=== PATIENT | female | born 1990 | race Asian ===

== ENCOUNTER → 2023-08-02 10:40 | Outpatient (REF) | payer OTHER, SELFPAY ==
[2023-08-02 13:50] LABS: Hepatitis B Surface Antibody Positive
[2023-08-02 19:06] LABS: Rubella Positive
[2023-08-04 13:37] LABS: Quantiferon Mitogen minus NIL 9.29 IU/mL; Quantiferon NIL 0.04 IU/mL; Quantiferon Plus TB1 minus NIL 0.01 IU/mL (0.00-0.34); Quantiferon TB Gold Plus Negative (Negative)
[2023-08-05 17:02] LABS: Mumps Virus IgG Equivocal; Rubeola (Measles) IgG Positive
[2023-08-05 18:42] LABS: Varicella Zoster IgG (VZV) Positive
== END ==
LOC: OHS 10:40
PROVIDERS: ATTENDING PHYSICIAN Nurse Practitioner Family
DX: Z23 Encounter for immunization (principal)
CPT/HCPCS: 36415; 86480; 86706; 86735; 86762; 86765; 86787

== ENCOUNTER → 2023-11-01 16:53 | Outpatient (REF) | payer OTHER, SELFPAY ==
[2023-11-01 17:52] LABS: HCG, Serum Qualitative Screen Negative
== END ==
LOC: CLAB 16:53
PROVIDERS: ATTENDING PHYSICIAN Family Medicine
DX: R11.0 Nausea (principal)
CPT/HCPCS: 36415; 84703

== ENCOUNTER → 2024-02-07 11:10 | Outpatient (REF) | payer BC, SELFPAY ==
[2024-02-08 12:36] LABS: Blood Urea Nitrogen 17 mg/dl (7-17); Glucose 97 mg/dl (70-99); eGFR > 60.00
[2024-02-08 12:37] LABS: ALT (SGPT) 13 U/L (0-35); AST (SGOT) 20 U/L (14-36); Albumin 4.7 g/dl (3.5-5.0); Alkaline Phosphatase 70 U/L (38-126); Calcium 9.8 mg/dl (8.4-10.2); Carbon Dioxide 27 mmol/L (22-30); Chloride 102 mmol/L (98-107); Potassium 4.1 mmol/L (3.5-5.1); Sodium 140 mmol/L (135-145); Total Bilirubin 0.4 mg/dl (0.2-1.3); Total Protein 7.2 g/dl (6.3-8.2)
[2024-02-08 12:38] LABS: Ferritin 34.6 ng/ml (6.24-137); HDL Cholesterol 52 mg/dl; LDL Cholesterol, Calculated 106 mg/dl; TSH 3.24 uIU/ml (0.47-4.68); Total Cholesterol 183 mg/dl (50-199); Total Iron Binding Capacity 299 ug/dl (265-497); Triglyceride 125 mg/dl (10-149); Very Low Density Lipoprotein 25 mg/dl (0-30)
[2024-02-08 12:40] LABS: Hematocrit 46.3 % (37.0-47.0); Mean Corp Hgb Conc. 32.4 g/dL (33.0-37.0); Mean Corpuscular Hgb 29.9 pg (27.0-31.0); Mean Corpuscular Volume 92.4 fL (81.0-99.0); Red Blood Cell Count 5.01 10^6/uL (4.20-5.40); Red Cell Dist. Width 13.4 % (11.5-14.5); White Blood Cell Count 5.7 10^3/uL (4.8-10.8)
[2024-02-08 12:41] LABS: % Basophils 0.9 % (0-2); % Eosinophils 1.9 % (0-6); % Immature Granulocytes 0.2 % (0-0.5); % Lymphocytes 37.2 % (20.5-51.1); % Monocytes 11.1 % (1.7-9.3); % Neutrophils 48.7 % (42.2-75.2); Absolute Basophils 0.1 10^3/uL (0-0.2); Absolute Eosinophils 0.1 10^3/uL (0-0.7); Absolute Lymphocytes 2.1 10^3/uL (1.2-3.4); Absolute Monocytes 0.6 10^3/uL (0.1-0.6); Absolute Neutrophils 2.8 10^3/uL (1.4-6.5); Mean Platelet Volume 10.4 fL (7.4-10.4); Platelet Count 238 10^3/uL (130-400)
[2024-02-08 12:42] LABS: Nucleated Red Blood Cells % 0 %
== END ==
LOC: CLAB 11:10
PROVIDERS: ATTENDING PHYSICIAN Family Medicine
DX: Z00.00 Encounter for general adult medical examination without abnormal findings (principal); E61.1 Iron deficiency
CPT/HCPCS: 80053; 80061; 82306; 82728; 83550; 84443; 85025

== ENCOUNTER → 2024-04-02 14:22 | Outpatient (REF) | payer BC, SELFPAY ==
[2024-04-10 09:53] LABS: HPV, High Risk Not Detected; HPV, High Risk Source Cervical
== END ==
LOC: CPAP 14:22
PROVIDERS: ATTENDING PHYSICIAN Nurse Practitioner Family
DX: Z01.419 Encounter for gynecological examination (general) (routine) without abnormal findings (principal); Z11.51 Encounter for screening for human papillomavirus (HPV); Z11.3 Encounter for screening for infections with a predominantly sexual mode of transmission
CPT/HCPCS: 87491; 87591; 87624; G0123

== ENCOUNTER → 2024-04-02 14:31 | Outpatient (REF) | payer BC, SELFPAY ==
[2024-04-02 15:53] LABS: Urine Albumin Negative (Neg - Trace); Urine Bilirubin Negative (Negative); Urine Character Clear (Clear); Urine Color Yellow; Urine Glucose Negative (Negative); Urine Ketone Negative (Negative); Urine Leukocyte 1+ (Negative); Urine Nitrite Negative (Negative); Urine Occult Blood Negative (Negative); Urine Specific Gravity 1.025 (<1.030); Urine Urobilinogen Negative (Neg - 1+)
[2024-04-02 16:00] LABS: % Basophils 0.3 % (0-2); % Eosinophils 1.1 % (0-6); % Immature Granulocytes 0.4 % (0-0.5); % Lymphocytes 24.1 % (20.5-51.1); % Monocytes 6.4 % (1.7-9.3); % Neutrophils 67.7 % (42.2-75.2); Absolute Eosinophils 0.1 10^3/uL (0-0.7); Absolute Lymphocytes 2.5 10^3/uL (1.2-3.4); Absolute Monocytes 0.7 10^3/uL (0.1-0.6); Absolute Neutrophils 6.9 10^3/uL (1.4-6.5); Hematocrit 39.6 % (37.0-47.0); Hemoglobin 13.6 g/dL (12.0-16.0); Mean Corp Hgb Conc. 34.3 g/dL (33.0-37.0); Mean Corpuscular Hgb 28.8 pg (27.0-31.0); Mean Corpuscular Volume 83.9 fL (81.0-99.0); Mean Platelet Volume 9.9 fL (7.4-10.4); Nucleated Red Blood Cells % 0 %; Platelet Count 297 10^3/uL (130-400); Red Blood Cell Count 4.72 10^6/uL (4.20-5.40); Red Cell Dist. Width 13.3 % (11.5-14.5); White Blood Cell Count 10.2 10^3/uL (4.8-10.8)
[2024-04-02 16:15] LABS: Urine Bacteria Moderate (Negative); Urine Red Blood Cell 0-2 /HPF (0-2); Urine Squamous Cell 26-30 /LPF (Few)
[2024-04-02 18:04] LABS: Rubella Positive
[2024-04-02 19:53] LABS: Hepatitis B Surface Antigen Negative (Negative)
[2024-04-02 20:11] LABS: Hepatitis C Antibody Negative (Negative)
[2024-04-03 10:06] LABS: Glycohemoglobin (HgbA1c) 5.3 % (4.0-5.6)
[2024-04-03 16:27] LABS: Syphilis/T. pallidum Ab Reflex Negative (Negative)
[2024-04-03 17:05] LABS: HIV Combo Negative (Negative)
== END ==
LOC: REG 14:31
PROVIDERS: ATTENDING PHYSICIAN Nurse Practitioner Family; FAMILY PHYSICIAN Family Medicine
DX: Z32.01 Encounter for pregnancy test, result positive (principal)
CPT/HCPCS: 36415; 80055; 81003; 81015; 83036; 86803; 86850; 86900; 86901; 87086; 87389

== ENCOUNTER → 2024-04-30 09:18 | Outpatient (REF) | payer BC, SELFPAY | LOC: PNTC 09:18 | PROVIDERS: ATTENDING PHYSICIAN Student in an Organized Health Care Education/Training Program | DX: O09.522 Supervision of elderly multigravida, second trimester (principal) | CPT/HCPCS: 36415; 81420 ==

== ENCOUNTER → 2024-05-12 16:07 | Outpatient (REF) | payer BC, SELFPAY | LOC: RAD 16:07 | PROVIDERS: ATTENDING PHYSICIAN Obstetrics & Gynecology; FAMILY PHYSICIAN Family Medicine | DX: O26.859 Spotting complicating pregnancy, unspecified trimester (principal) | CPT/HCPCS: 76801 ==

== ENCOUNTER → 2024-06-11 15:25 | Outpatient (REF) | payer BC, SELFPAY ==
[2024-06-13 20:18] LABS: AFP Multiple of Median (MoM) 0.78; Dating Ultrasound; Insulin Req Maternal Diabetes No; Maternal Age at Delivery 35.6 yr; Maternal Race Nonblack; Maternal Screen Interpretation Screen Neg; Maternal Weight 147.0 lbs.; Number of Fetuses Singleton; Patient's AFP Concentration 37 ng/mL; Smoking No
== END ==
LOC: PNTC 15:25
PROVIDERS: ATTENDING PHYSICIAN Student in an Organized Health Care Education/Training Program
DX: Z34.92 Encounter for supervision of normal pregnancy, unspecified, second trimester (principal)
CPT/HCPCS: 36415; 82105

== ENCOUNTER 2024-07-17 14:46 | Observation (INO) | payer BC, SELFPAY ==
[2024-07-17 15:25] VITALS: BP 111/72; BMI 25.6
[2024-07-17 15:53] LABS: Hematocrit 36.5 % (37.0-47.0); Hemoglobin 12.5 g/dL (12.0-16.0); Mean Corp Hgb Conc. 34.2 g/dL (33.0-37.0); Mean Corpuscular Hgb 30.2 pg (27.0-31.0); Mean Corpuscular Volume 88.2 fL (81.0-99.0); Mean Platelet Volume 9.8 fL (7.4-10.4); Platelet Count 276 10^3/uL (130-400); Red Blood Cell Count 4.14 10^6/uL (4.20-5.40); Red Cell Dist. Width 14.3 % (11.5-14.5); White Blood Cell Count 11.6 10^3/uL (4.8-10.8)
== END 2024-07-17 18:08 | disposition home or self-care (01) ==
LOC: LDRP 14:46
PROVIDERS: ADMITTING PHYSICIAN Obstetrics & Gynecology
DX: O26.892 Other specified pregnancy related conditions, second trimester (principal); Z3A.23 23 weeks gestation of pregnancy; R10.9 Unspecified abdominal pain; M25.551 Pain in right hip; W00.0XXA Fall on same level due to ice and snow, initial encounter; Y93.01 Activity, walking, marching and hiking; Y92.9 Unspecified place or not applicable
CPT/HCPCS: 76815; 76817; 85027; 85460; 86850; 86900; 86901

== ENCOUNTER → 2024-08-13 06:37 | Outpatient (REF) | payer BC, SELFPAY ==
[2024-08-13 09:36] LABS: % Basophils 0.2 % (0-2); % Eosinophils 0.5 % (0-6); % Lymphocytes 15.7 % (20.5-51.1); % Monocytes 4.8 % (1.7-9.3); % Neutrophils 77.8 % (42.2-75.2); Absolute Eosinophils 0.1 10^3/uL (0-0.7); Absolute Immature Granulocytes 0.1 10^3/uL (0-0.05); Absolute Lymphocytes 1.6 10^3/uL (1.2-3.4); Absolute Monocytes 0.5 10^3/uL (0.1-0.6); Absolute Neutrophils 7.7 10^3/uL (1.4-6.5); Hematocrit 42.6 % (37.0-47.0); Hemoglobin 13.8 g/dL (12.0-16.0); Mean Corp Hgb Conc. 32.4 g/dL (33.0-37.0); Mean Corpuscular Hgb 30.5 pg (27.0-31.0); Mean Corpuscular Volume 94.2 fL (81.0-99.0); Mean Platelet Volume 10.6 fL (7.4-10.4); Nucleated Red Blood Cells % 0 %; Platelet Count 213 10^3/uL (130-400); Red Blood Cell Count 4.52 10^6/uL (4.20-5.40); Red Cell Dist. Width 15.2 % (11.5-14.5); White Blood Cell Count 9.9 10^3/uL (4.8-10.8)
[2024-08-13 09:55] LABS: 1 Hour after 50gm 119 mg/dl
[2024-08-14 12:55] LABS: Syphilis/T. pallidum Ab Reflex Negative (Negative)
== END ==
LOC: REG 06:37
PROVIDERS: ATTENDING PHYSICIAN Obstetrics & Gynecology; FAMILY PHYSICIAN Family Medicine
DX: Z34.93 Encounter for supervision of normal pregnancy, unspecified, third trimester (principal)
CPT/HCPCS: 36415; 82950; 85025; 86780

== ENCOUNTER → 2024-10-15 11:14 | Outpatient (REF) | payer BC, SELFPAY | LOC: CLAB 11:14 | PROVIDERS: ATTENDING PHYSICIAN Obstetrics & Gynecology | DX: Z36.85 Encounter for antenatal screening for Streptococcus B (principal); O09.523 Supervision of elderly multigravida, third trimester | CPT/HCPCS: 87070 ==

== ENCOUNTER → 2024-10-22 10:57 | Outpatient (REF) | payer BC, SELFPAY | LOC: PNTC 10:57 | PROVIDERS: ATTENDING PHYSICIAN Student in an Organized Health Care Education/Training Program | DX: O36.8390 Maternal care for abnormalities of the fetal heart rate or rhythm, unspecified trimester, not applicable or unspecified (principal); O09.529 Supervision of elderly multigravida, unspecified trimester | CPT/HCPCS: 59025; 76818 ==

== ENCOUNTER 2024-11-02 10:54 | Inpatient (IN) | payer BC, SELFPAY ==
[2024-11-02 10:59] VITALS: BP 124/77; BMI 30.3
[2024-11-02] MEDS: LR 1000 IV ×2 (12:00→13:44)
[2024-11-02 12:28] LABS: % Basophils 0.2 % (0-2); % Eosinophils 0.6 % (0-6); % Immature Granulocytes 0.3 % (0-0.5); % Lymphocytes 15.3 % (20.5-51.1); % Monocytes 7.4 % (1.7-9.3); % Neutrophils 76.2 % (42.2-75.2); Absolute Eosinophils 0.1 10^3/uL (0-0.7); Absolute Lymphocytes 1.6 10^3/uL (1.2-3.4); Absolute Monocytes 0.8 10^3/uL (0.1-0.6); Absolute Neutrophils 7.8 10^3/uL (1.4-6.5); Hematocrit 40.1 % (37.0-47.0); Hemoglobin 13.7 g/dL (12.0-16.0); Mean Corp Hgb Conc. 34.2 g/dL (33.0-37.0); Mean Corpuscular Hgb 30.4 pg (27.0-31.0); Mean Corpuscular Volume 88.9 fL (81.0-99.0); Mean Platelet Volume 11.4 fL (7.4-10.4); Nucleated Red Blood Cells % 0 %; Platelet Count 224 10^3/uL (130-400); Red Blood Cell Count 4.51 10^6/uL (4.20-5.40); Red Cell Dist. Width 14.1 % (11.5-14.5); White Blood Cell Count 10.2 10^3/uL (4.8-10.8)
[2024-11-02] MEDS: SUBLIMAZE 100 MCG EPIDURAL (13:21)
[2024-11-02] MEDS: FENTANYL/BUPIVACAINE 100 EPIDURAL (13:21)
[2024-11-02] MEDS: PITOCIN 30 UNITS/NSS 500 ML IV (16:12)
[2024-11-03 04:51] LABS: Hematocrit 39.5 % (37.0-47.0); Hemoglobin 13.2 g/dL (12.0-16.0)
[2024-11-03] MEDS: PRENATAL PLUS 1 TABLET PO (07:39)
[2024-11-03] MEDS: MOTRIN 600 MG PO ×2 (07:39→21:19)
[2024-11-03] MEDS: SENOKOT-S 1 TABLET PO (07:39)
[2024-11-03] MEDS: TYLENOL 650 MG PO (13:04)
[2024-11-03 13:34] LABS: Syphilis/T. pallidum Ab Reflex Negative (Negative)
[2024-11-04] MEDS: PRENATAL PLUS 1 TABLET PO (07:43)
[2024-11-04] MEDS: SENOKOT-S 1 TABLET PO (07:48)
[2024-11-04] MEDS: MOTRIN 600 MG PO (07:48)
== END 2024-11-04 11:00 | disposition home or self-care (01) | DRG 807 ==
LOC: LDRP 10:54
PROVIDERS: ADMITTING PHYSICIAN Obstetrics & Gynecology; FAMILY PHYSICIAN Obstetrics & Gynecology
PROC: 10907ZC Drainage of Amniotic Fluid, Therapeutic from Products of Conception, Via Natural or Artificial Opening (ICD-10-PCS; 2024-11-02)
PROC: 10E0XZZ Delivery of Products of Conception, External Approach (ICD-10-PCS; 2024-11-02)
PROC: 0HQ9XZZ Repair Perineum Skin, External Approach (ICD-10-PCS; 2024-11-02)
DX: O70.0 First degree perineal laceration during delivery (principal); Z37.0 Single live birth; Z3A.38 38 weeks gestation of pregnancy
CPT/HCPCS: 85014; 85018; 85025; 86780; 86850; 86900; 86901

== ENCOUNTER 2025-03-24 20:39 | Observation (INO) | payer BC, SELFPAY ==
[2025-03-24 16:07] VITALS: BP 135/86
--- NOTE | 2025-03-24 16:11 | ED.GENMED ---
History of Present Illness
General
Chief Complaint: Dizziness
Source: patient
Exam Limitations: none
Time Seen by Provider: 03/24/25 16:06
History of Present Illness
History of Present Illness:
See MDM
Past History
Past History
ED Past Medical History: None
ED Past Surgical History: None
Social History
Tobacco: Non-smoker
Alcohol: None
Phy Exam
Physical Exam
Physical Exam:
See MDM
Scores
NIH Stroke Score
Level of Consciousness: 0 - Alert
LOC Questions: 0-Answers both correctly
LOC Commands: 0-Performs both correctly
Best Horizontal Gaze: 0-Normal
Visual Torres: 0=Normal, no visual loss
Facial Palsy: 0=Normal, symmetrical
Motor - Right Arm: 0=No drift 10 seconds
Motor - Left Arm: 0=No drift 10 seconds
Motor - Right Le-No drift 5 seconds
Motor - Left Le-No drift 5 seconds
Limb Ataxia: 0-Absent
Sensation: 0-Normal
Best Language: 0-No aphasia
Dysarthria: 0-Normal
Extinction and Inattention: 0-No abnormality
NIH Total Score:: 0
Course
Orders/Labs/Results
Orders:
Orders
03/24/25 16:08
0.9% Sodium Chloride 1000 ml [Nss] 1,000 ml IV BOLUS
03/24/25 16:09
Electrocardiogram (*1) Urgent
Reason for Study: Fatigue / Weakness
EKG- Treatment ONCE
03/24/25 16:15
CT Head Angio W/wo Iv Contrast Urgent
Comment: delayed imaging for CT venogram
Reason For Exam: ataxia
03/24/25 16:22
Complete Blood Count/With Diff Urgent
Comprehensive Metabolic Panel Urgent
HCG, Serum Qualitative Screen Urgent
Comment: ADD ON
03/24/25 17:26
Add On- LAB STAT!
Tests Added?: serum preg
03/24/25 19:17
Consult Neurology [NEUROLOGY CONSULT] Routine
Consulting Provider: Adriel Gavin
Was physician already notified: Yes
Aspirin Chewable [Low Strength Aspirin] 324 mg PO NOW STA
Clopidogrel Bisulfate [Plavix] 300 mg PO NOW STA
Abnormal Lab Results
03/24/25
16:22
Absolute Neuts (auto) 8.1 H 10^3/uL
(1.4-6.5)
Absolute Monos (auto) 0.7 H 10^3/uL
(0.1-0.6)
Neutrophils % 79.8 H %
(42.2-75.2)
Lymphocytes % 12.4 L %
(20.5-51.1)
Glucose 125 H mg/dl
(70-99)
03/24/25 16:22
03/24/25 16:22
Vital Signs
Initial and Last Documented VS:
Initial Vital Signs
BP
135/86
03/24/25 16:07
Last Documented Vital Signs
Pulse Resp BP Pulse Ox
81 12 112/84 100
03/24/25 18:00 03/24/25 16:15 03/24/25 18:00 03/24/25 18:00
MDM/Problems Addressed
Differential Diagnosis Includes:
Note:
CHIEF COMPLAINT(S)
Unsteady gait and dizziness.
HISTORY OF PRESENT ILLNESS
The patient is a 35-year-old female who presented with concerns of unsteady gait. Approximately 30 minutes prior to arrival at the medical facility, while at work, she experienced sudden dizziness accompanying a tendency to stumble to the right. She
reported feeling 'off,' although she perceives some improvement since the onset. She denies having any headache, numbness, tingling, or visual disturbances. The patient experienced mild nausea but declined anti-nausea medication. She had her first
menstrual cycle approximately one week ago following childbirth four months prior, and she stated it appeared normal.
PAST MEDICAL AND SURIGICAL HISTORY
The patient denies any past medical or surgical history.
PHYSICAL EXAM
General: Alert, no acute distress.
Skin: Warm, dry.
Head: Normocephalic, atraumatic
Neck: Appears supple, trachea midline.
Eyes, Ears, Nose, Mouth, and Throat: Oral mucosa moist. Pupils equal reactive. EOMI
Cardiovascular: No signs of cyanosis. No murmur noted
Respiratory: Respirations are non-labored.
Abdomen: Non-distended
Musculoskeletal: No deformities
Neurological: No focal neurological deficit observed. Normal finger-nose bilaterally
Psychiatric: Cooperative, appropriate mood and affect.
PROBLEM LIST
Acute:
- Unsteady gait
- Dizziness
- Mild nausea
PLAN
- Obtain CT scan of the head to evaluate ataxia.
- Conduct basic blood work.
- Perform ECG.
- Administer intravenous fluids.
- If the patient remains symptomatic after a negative workup, consult with neurology.
DIFFERENTIAL DIAGNOSIS
The Differential Diagnosis includes, in no particular order and is not limited to:
- Benign Paroxysmal Positional Vertigo (BPPV)
- Vestibular Neuritis
- Transient Ischemic Attack (TIA)
- Cerebellar Stroke
- Labyrinthitis
- M�ni�res Disease
- Orthostatic Hypotension
- Dehydration
- Inner Ear Infection
- Acute Vestibular Migraine
My independent EKG interpretation is:
- Rhythm: Regular
- Heart Rate: 97 beats per minute
- [place]: Normal
- ST Segment Changes: None
03/24/25 - 16:20
On reassessment, the patient exhibits right-sided ataxia when closing her eyes. Neurology recommends a CT angiogram of the head, followed by delayed imaging to obtain a CT venogram due to her recent state. Radiology has approved the order for these
imaging studies.
SUMMARY OF ENCOUNTER
The patient, a 35-year-old female, presented to the emergency department with symptoms of unsteady gait and dizziness. A CT angiogram and CT venogram were ordered to evaluate her symptoms due to concern for possible neurological issues. These
imaging studies returned negative. Despite this, the patient remained symptomatic. Neurology was consulted and advised that empirical treatment with aspirin and clopidogrel (Plavix) be initiated while awaiting admission for an MRI. Additionally,
potential alternative diagnoses such as multiple sclerosis and viral syndrome were discussed with the patient. An incidental finding of a Chiari malformation on the CT was also addressed with her.
DISPOSITION
Admit to the hospitalist.
ASSESSMENT
The patient presents with dizziness and unsteady gait, with a negative CT angiogram and venogram, but remains symptomatic. Empirical treatment with aspirin and clopidogrel was initiated, and hospital admission for further evaluation, including MRI,
is planned.
MANAGEMENT OF THE PATIENTS CARE WAS DISCUSSED WITH
Discussions regarding the patients management were held with the neurology team to determine the appropriate course of action, resulting in the plan for hospital admission and further imaging studies.
PLAN
Admit the patient to the hospital for further evaluation, including MRI. Start aspirin and clopidogrel empirically. Monitor for changes in symptoms and reassess regularly. Continue to explore other potential diagnoses such as multiple sclerosis or
viral syndrome.
INDEPENDENT REVIEW OF LABS AND INTERPRETATION OF TESTS
My independent interpretation of the CT angiogram and CT venogram is negative. However, a Chiari malformation was incidentally noted.
PATIENT EDUCATION AND COUNSELING
The patient was informed about the incidental finding of Chiari malformation and potential alternative diagnoses such as multiple sclerosis versus a viral syndrome. Treatment options and the plan for hospital admission were thoroughly discussed.
MEDICATION RECONCILIATION
Initiated treatment with aspirin and clopidogrel (Plavix) as per neurologys recommendation.
MEDICAL DECISION MAKING
-Complexity of Data Reviewed: DDx includes Benign Paroxysmal Positional Vertigo (BPPV), Vestibular Neuritis, Transient Ischemic Attack (TIA), Cerebellar Stroke, Labyrinthitis, M�ni�res Disease, Orthostatic Hypotension, Dehydration, Inner Ear
Infection, Acute Vestibular Migraine.
-Data:
Category 1: My independent interpretation of CT angiogram and CT venogram returned negative results. Incidental finding of Chiari malformation.
Category 3: Consultation with neurology for management plan and decision to admit for an MRI.
DIAGNOSIS
Unsteady gait and dizziness, unspecified, likely multifactorial. Potential alternative diagnoses include multiple sclerosis, Chiari malformation, or viral syndrome. Await MRI for further evaluation.
*Pulse Oximetry
Patient hypoxic: no
*Critical Care Note
Total Time (30-74mins, 75-104mins- exclusive of procedures): Not Applicable
ED Attending Note
-
Portions of this chart may have been created with voice recognition software.� Occasional wrong word or��sound alike� substitutions may have occurred due to the inherent limitations of voice recognition software.
Discharge Plan
Departure
Patient Disposition: Admit
Date of Disposition: 03/24/25
Time of Disposition: 19:24
Admit to: Med/Surg
Presentation/result/management discussed w/ accepting MD/DO: Hospitalist
Discharge Problem:
Ataxia
Prescriptions:
No Action
vit-iron fum-folic ac [ Tablet] 28 mg iron- 800 mcg Tablet
1 tab PO DAILY
cholecalciferol (vitamin D3) 100 mcg (4,000 unit) Capsule
1,000 unit PO DAILY
acetaminophen 325 mg Tablet
650 mg PO Q4HPRN PRN (Reason: mild pain) Qty: 0 0RF
sennosides-docusate sodium 8.6-50 mg Tablet
1 tab PO DAILYPRN PRN (Reason: constipation) Qty: 0 0RF
ibuprofen 600 mg Tablet
600 mg PO Q6HPRN PRN (Reason: moderate pain/cramps) Qty: 45 0RF
Referrals:
Eduar Newton DO [Family Provider, Family Practice]
Interventions
Interventions:
*Risk Screen - Suicide Last Done: 03/24/25 16:30
*General Assessment Last Done: 03/24/25 16:30
*Neglect/Abuse Screening Last Done: 03/24/25 16:30
*ED- Fall Risk Assessment Last Done: 03/24/25 16:30
ED- Neurological Assessment Last Done: 03/24/25 16:30
ED- Cardiac Assessment Last Done: 03/24/25 16:30
ED Swallowing Screen Last Done: 03/24/25 16:30
Discharge Date and Time
Print Language: UPPER SORBIAN
[2025-03-24 16:36] VITALS: BMI 25.4
[2025-03-24 16:43] LABS: Hematocrit 42.4 % (37.0-47.0); Hemoglobin 14.4 g/dL (12.0-16.0); Mean Corp Hgb Conc. 34.0 g/dL (33.0-37.0); Mean Corpuscular Volume 87.8 fL (81.0-99.0); Nucleated Red Blood Cells % 0 %; Platelet Count 243 10^3/uL (130-400); Red Cell Dist. Width 13.1 % (11.5-14.5)
[2025-03-24] MEDS: NSS 1000 IV (16:50)
[2025-03-24 16:53] VITALS: BP 111/84
[2025-03-24 17:00] VITALS: BP 114/76
[2025-03-24 17:09] LABS: ALT (SGPT) 16 U/L (0-35); AST (SGOT) 17 U/L (14-36); Albumin 5.0 g/dl (3.5-5.0); Alkaline Phosphatase 66 U/L (38-126); Blood Urea Nitrogen 12 mg/dl (7-17); Calcium 9.4 mg/dl (8.4-10.2); Carbon Dioxide 27 mmol/L (22-30); Chloride 106 mmol/L (98-107); Estimated Creatinine Clearance 117 ml/min; Glucose 125 mg/dl (70-99); Potassium 3.8 mmol/L (3.5-5.1); Sodium 140 mmol/L (135-145); Total Protein 7.5 g/dl (6.3-8.2); eGFR > 60.00
[2025-03-24 18:00] VITALS: BP 112/84
[2025-03-24 18:07] LABS: HCG, Serum Qualitative Screen Negative
[2025-03-24] MEDS: LOW STRENGTH ASPIRIN 324 MG PO (19:34)
[2025-03-24] MEDS: PLAVIX 300 MG PO (19:34)
--- NOTE | 2025-03-24 19:43 | HPS.HSE ---
Family Physician
-
Family Physician: Eduar Newton
Chief Complaint
-
dizziness
History of Present Illness
This is a 35-year-old female with past medical history of mild asthma who presents to the emergency department with sudden onset of ataxia. She is 4 weeks .
This is a generally healthy 35-year-old with no known significant past medical history who presents to the emergency department after developing difficulty with ambulation today. Patient reported she woke up in usual state of health. She was
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 She tried to walk again and then she kept falling towards her right. She says the symptoms is more
apparent when she closes her eyes. She denies having any headache, blurry vision, double vision, nausea or vomiting. She denies any headache. She denies any symptoms of spinning sensation. She reported her spouse had some URI symptoms the day
before but otherwise no known sick contact. She denies having any recent episodes of diarrhea melena or hematochezia. She denies any numbness or tingling. She denies any facial asymmetry. She denies any speech abnormalities. She had no other
focal neurological deficits.
Examination in the emergency department and revealed NIHSS equals 0 except for ataxia with leaning towards the right with attempted ambulation or eye closure.
In the emergency department patient was afebrile, blood pressure was stable at 112/84 with a pulse rate of 81 and she was satting 1% on room air. ECG shows a normal sinus rhythm at a rate of 9 7. CBC was normal. Electrolytes BUN/creatinine were
all normal.
CT of the head, CT enterography and venography of the intracranial circulation is all within normal limits. No evidence of hydrocephalus.
Medical History
Past Medical History
Past Medical History: Reports Asthma
Past Surgical History: Reports None
Social History
Tobacco: Non-smoker
Alcohol: None
Drug: None
Living: With Family
Family History
Family History: Cancer (Lung Ca) and Other (parkinson in mother)
Allergies / Home Medications
Allergies reflects when Allergies were last updated in [facility].
Home Medications with original date entered in [facility]
Allergy/Medication List:
Allergies
Allergy/AdvReac Type Severity Reaction Status Date / Time
No Known Allergies Allergy Unverified 03/24/25 16:12
Home Medications
cholecalciferol (vitamin D3) 100 mcg (4,000 unit) capsule 1,000 unit PO DAILY 11/02/24
vitamin-ferrous fumarate 28 mg iron-folic acid 800 mcg tablet ( Tablet) 1 tab PO DAILY 11/02/24
acetaminophen 325 mg tablet 650 mg (2 x 325 mg) PO Q4HPRN PRN mild pain #0 tabs 11/04/24
ibuprofen 600 mg tablet 600 mg PO Q6HPRN PRN moderate pain/cramps #45 tabs 11/04/24
sennosides 8.6 mg-docusate sodium 50 mg tablet 1 tab PO DAILYPRN PRN constipation #0 tabs 11/04/24
Review of Systems
-
Constitutional: Reports No Symptoms
EENT: Reports No Symptoms
Respiratory: Reports No Symptoms
Cardiac: Reports No Symptoms
Abdomen/GI: Reports No Symptoms
: Reports No Symptoms
Musculoskeletal: Reports No Symptoms
Skin: Reports No Symptoms
Neurological: Reports Dizzy
Endocrine: Reports No Symptoms
Hematologic/Lymphatic: Reports No Symptoms
Psych: Reports No Symptoms
Physical Exam
Vital Signs
Vital Signs
Pulse Resp BP Pulse Ox
81 12 112/84 100
03/24/25 18:00 03/24/25 16:15 03/24/25 18:00 03/24/25 18:00
Physical Exam
General: Well Developed, Well Nourished and No Apparent Distress
HEENT: NormoCephalic, Moist mucous membranes and Atraumatic
Respiratory: Clear
Cardiac: S1/S2 and Regular Rhythm; No Murmur or Rub
GI: Soft, Non Tender, Non Distended and Normal Bowel Sounds; No Organomegaly
Rectal: Deferred by Provider
Musculoskeletal: No Clubbing, No Cyanosis and No Edema
Skin: No Rash
Neuro: AO x 3, No Motor Deficits, Nonfocal/grossly intact, Cranial Nerves Intact, No Sensory Deficits and DTR's Intact & Symmetrical; No Slurred Speech, Facial Droop or Tremors
Hematologic/Lymphatic: No Lymphadenopathy
Psych: Calm
Laboratory Results
-
03/24/25 16:22
03/24/25 16:22
Laboratory Results
Total Bilirubin 0.4 mg/dl (0.2-1.3) 03/24/25 16:22
AST 17 U/L (14-36) 03/24/25 16:22
ALT 16 U/L (0-35) 03/24/25 16:22
Alkaline Phosphatase 66 U/L (38-126) 03/24/25 16:22
Data Reviewed
-
CT Scan: Report Reviewed by me
Medical Tests (Nuc Med, Echo, EKG etc): Image Personally Visualized and interpreted
Lab Data: Labs Reviewed by me
Old Records: Reviewed
Impression/Plan
-
IMPRESSION:
35-year-old with no known significant past medical history, 4 weeks ago presents to the emergency department with sudden onset of ataxia in the last 10 hours. She has a rightward leaning ataxia/fall with eyes closed, otherwise
neurological exam was intact. No known family hx.
PLAN:
TIA suspected - Sudden onset ataxia, no vertigo. No history of MS or other white matter disease.
- admit to observation, telemetry
- neurochecks q4 hours
- s/p CT A, CT V. MRI w/o contrast in am to help eval CVA, MS
- check esr, a1c, tsh
- continue aspirin/plavix for now
- neurology consultation
DVT PPX - lovenox sq
Code status - Full Code
[2025-03-24 21:56] VITALS: BP 111/79; BMI 25.3
[2025-03-24 23:04] VITALS: BP 104/63
[2025-03-25 03:39] VITALS: BP 93/65
[2025-03-25 07:37] VITALS: BP 113/79
[2025-03-25] MEDS: LOW STRENGTH ASPIRIN 81 MG PO (07:46)
[2025-03-25] MEDS: PLAVIX 75 MG PO (07:46)
[2025-03-25 07:59] LABS: Hematocrit 42.3 % (37.0-47.0); Hemoglobin 13.6 g/dL (12.0-16.0); Mean Corp Hgb Conc. 32.2 g/dL (33.0-37.0); Mean Corpuscular Volume 93.0 fL (81.0-99.0); Platelet Count 221 10^3/uL (130-400); Red Cell Dist. Width 13.2 % (11.5-14.5)
[2025-03-25 08:12] LABS: Blood Urea Nitrogen 10 mg/dl (7-17); Calcium 9.3 mg/dl (8.4-10.2); Carbon Dioxide 27 mmol/L (22-30); Chloride 111 mmol/L (98-107); Estimated Creatinine Clearance 117 ml/min; Glucose 92 mg/dl (70-99); HDL Cholesterol 48 mg/dl; LDL Cholesterol, Calculated 98 mg/dl; Magnesium 2.2 mg/dl (1.6-2.3); Potassium 4.6 mmol/L (3.5-5.1); Sodium 141 mmol/L (135-145); Very Low Density Lipoprotein 28 mg/dl (0-30); eGFR > 60.00
--- NOTE | 2025-03-25 08:35 | CON.NEURO4 ---
Addendum entered and electronically signed by Adriel Gavin MD 03/25/25 12:06:
Studies reviewed.
I have personally examined the patient. I reviewed and agree with the SURVEILLANCE AGENT's Note.
My addenda:
Awake, alert, interactive. No acute distress.
Speech intact.
Follows 2-step requests w/o difficulty. No tremor.
Extra-ocular movements grossly intact.
Facial movements full and symmetric. Hearing intact to normal conversational volume.
Normal UE movements bilaterally.
Immediately falls to the right with eyes closed
Neck: full ROM.
Chest: no dyspnea
Heart: no JVD
Ext: (-) Clubbing, (-) Cyanosis, (-) Edema
IMPRESSIONS/RECOMMENDATIONS:
Abrupt onset of ataxia
Differential diagnosis includes midline cerebellar lesion as well as vestibular neuritis which is less likely based on absence of hearing loss or tinnitus
Check MRI of brain with and without contrast
Consider lumbar puncture based on MRI results
Consider additional spinal imaging based on MRI brain results
Consider initiation of high-dose steroids based on MRI brain results
Physical therapy evaluation and treatment
D/W patient / family
All questions answered.
Will continue to follow patient.
Original Note:
Documented by User: Vee Le NP 03/25/25 11:01
Consultation - Neurology 4
-
CONSULTING PHYSICIAN: Adriel Gavin MD
REFERRING PHYSICIAN: Hospitalists/Dr. Calvin
DICTATED BY: EDGARD Hassan
DATE/TIME OF REQUEST: 03/24/25
DATE/TIME OF CONSULTATION: 03/25/25
Reason for Consultation: Ataxia
History of Present Illness:
This is a 35-year-old female who has presented to the hospital with report of ataxia. Patient reports that she was in her usual state yesterday (03/24/25) at work at 1515 when she had a wave of nausea that passed, then she went to walk towards an
exam room and suddenly was falling to her right side while walking. She also noticed that even while sitting, if she closes her eyes she falls to her right side. Her symptoms persisted, prompting her to come to the ER for evaluation. CT venogram was
obtained and is unremarkable. NIHSS is 0. She was not a candidate for TNK/IAT due to low NIHSS. She was loaded with DAPT in the ER. Patient and her spouse at bedside report that their son in daycare recently had a virus and her spouse also had some
nausea and mild dizziness this week. She is 4 months and reports that her and delivery were uncomplicated.
Past Medical History: Iron deficiency
Surgical History: Tonsillectomy.
Family History: Mother- Parkinson's disease.
Social History: Denies tobacco, alcohol, and illicit drug use.
Allergies: No known allergies.
Home Medications: See below.
Review of Symptoms:
Patient denies any fever, headache, chest pain, shortness of breath, or symptoms.
�Per the HPI.�All systems are reviewed negative except above.
Physical Exam:
The patient is afebrile, abdomen is nondistended, breathing is unlabored, skin is warm and dry, no edema.
NIH Stroke Scale:
I performed the NIH stroke scale on the patient on 03/25/25 at 0855. The patient scored 0 points on the NIH stroke scale assessment, which were assigned as follows: See below.
Neurologic Examination:
The patient is awake, alert and oriented x 3. She is able to follow commands and answer questions appropriately. There is no aphasia or dysarthria. On cranial nerve assessment, pupils are 3 mm bilateral, round and reactive to light and
accommodation. Visual torres are full. Extraocular movements are intact. There is micro nystagmus beating towards the left side. Facial sensations are intact and bilaterally symmetrical, there is no facial asymmetry. Hearing is intact bilaterally to
normal conversation volume. Tongue palate and uvula are midline. Sternocleidomastoid strengths are full bilaterally. Motor strengths are 5/5 bilateral upper and lower extremities on medical research [place] scale. There is no drift or involuntary
movement noted. Deep tendon reflexes are 2+ bilateral upper and lower extremities and Babinski is absent bilaterally.There was no extinction noted on double simultaneous stimulation. Coordination is intact by finger to nose bilaterally but LUE
satellites around RUE very slightly. +Romberg.
Lab Results: See below.
Neuro Imaging:
1. CT venogram 03/24/25: On sagittal reconstructions, low-lying cerebellar tonsils, but do not meet criteria for Chiari malformation. No evidence for tectal beaking. No evidence for hydrocephalus. No evidence of acute intracranial abnormality. CT
arteriography and venography of the intracranial circulation is within normal limits.
Differentials for the patient's presentation include:
1. Sudden onset ataxia; uncertain etiology, possibilities include vestibular neuritis given micronystagmus on exam, demyelination, and metabolic abnormality. Low concern for stroke.
Patient has the following risk factors for their symptoms: exposure to viral illness, age, recent
IV Tenecteplase/IAT candidacy: Not a candidate due to low NIHSS.
Recommendations:
-MRI Brain with and w/o contrast pending, lorazepam on-call for MRI due to claustrophobia.
-Okay to continue DAPT with aspirin and plavix for now. If MRI is negative for stroke, will discontinue both.
-Based on MRI brain imaging findings, may need to consider lumbar puncture.
-PT/OT evaluations.
-Checking blood work for metabolic abnormalities.
-Neurological checks and NIHSS per unit guidelines.
-Provide patient with a stroke education packet.
-DVT prophylaxis.
Discussed patient care with: Dr. Gavin, the patient, patient's spouse
Vital Signs and Labs
-
Vital Signs and Labs:
Vital Signs
Temp Pulse Resp BP Pulse Ox
98.8 F 71 16 113/79 100
03/25/25 07:37 03/25/25 07:37 03/25/25 07:37 03/25/25 07:37 03/25/25 07:37
Lab Results
03/25/25 06:34
03/25/25 06:34
Sodium 141 mmol/L (135-145) 03/25/25 06:34
Potassium 4.6 mmol/L (3.5-5.1) 03/25/25 06:34
BUN 10 mg/dl (7-17) 03/25/25 06:34
Glucose 92 mg/dl (70-99) 03/25/25 06:34
Calcium 9.3 mg/dl (8.4-10.2) 03/25/25 06:34
LDL Cholesterol, Calc 98 mg/dl 03/25/25 06:34
Medications
-
Active Medications
Generic Name Dose Route Start Last Admin
Trade Name Freq PRN Reason Stop Dose Admin
Acetaminophen 650 mg 03/24/25 21:45
Acetaminophen 650 Mg Rectal Suppository RECTAL 04/21/25 21:44
Q4HPRN PRN
MARCUM, mild pain, or temp >100.4F
Acetaminophen 650 mg 03/24/25 21:45
Acetaminophen 325 Mg Tablet PO 04/21/25 21:44
Q4HPRN PRN
MARCUM, mild pain, or temp >100.4F
Aspirin 81 mg 03/25/25 08:00 03/25/25 07:46
Aspirin 81 Mg Chewable Tablet PO 04/22/25 07:59 81 mg
DAILY SUKI Administration
Clopidogrel Bisulfate 75 mg 03/25/25 08:00 03/25/25 07:46
Clopidogrel 75 Mg Tablet PO 04/22/25 07:59 75 mg
DAILY SUKI Administration
Enoxaparin Sodium 40 mg 03/25/25 18:00
Enoxaparin Sodium 40 Mg/0.4 Ml Syringe SC 04/22/25 17:59
QPM SUKI
Sodium Chloride 0 flush 03/24/25 22:00
Sodium Chloride 0.9% (Flush) Syringe IV 04/21/25 21:59
PER PROTOCOL SUKI
Home Medications
�Medication �Instructions �Recorded
cholecalciferol (vitamin D3) 25 25 mcg PO DAILY 03/24/25
mcg (1,000 unit) tablet (Vitamin
D3)
NIH Stroke Score
Subsequent NIH Scale
Date of Subsequent NIH Scale: 03/25/25
Time of Subsequent NIH Scale: 08:55
NIH Stroke Score
Level of Consciousness: 0 - Alert
LOC Questions: 0-Answers both correctly
LOC Commands: 0-Performs both correctly
Best Horizontal Gaze: 0-Normal
Visual Torres: 0=Normal, no visual loss
Facial Palsy: 0=Normal, symmetrical
Motor - Right Arm: 0=No drift 10 seconds
Motor - Left Arm: 0=No drift 10 seconds
Motor - Right Le-No drift 5 seconds
Motor - Left Le-No drift 5 seconds
Limb Ataxia: 0-Absent
Sensation: 0-Normal
Best Language: 0-No aphasia
Dysarthria: 0-Normal
Extinction and Inattention: 0-No abnormality
NIH Total Score:: 0

Documented by User: Adriel Gavin MD 03/25/25 11:48
NIH Stroke Score
NIH Stroke Score
NIH Total Score:: 0
--- NOTE | 2025-03-25 09:15 | PTOTSP ---
Speech Language Pathology
Pt seen for speech/language evaluations. No dysarthria noted. Language evaluated via the Quick Aphasia Battery (QAB), form 1. Pt with an overall score of 9.60, indicative of overall skills WNL.
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 If positive, can consider outpatient comprehensive evaluation.
--- NOTE | 2025-03-25 09:24 | W.PN.HOSP.TC ---
Today's Communication/Plan
-
see bold
Assessment / Plan
Assessment / Plan
HPI: 35-year-old with no known significant past medical history, 4 months ago presents to the emergency department with sudden onset of ataxia in the last 10 hours. She has a rightward leaning ataxia/fall with eyes closed, otherwise
neurological exam was intact. No known family hx.
Assessment/plan:
#Ataxia with leaning to the right
Patient continues to have symptoms today, unlikely to be TIA
Brain MRI negative for intracranial pathology
Discussed with neurology, who suspects bilateral vestibulopathies, which is slightly worse on the left than right
Neurology is recommending a trial of prednisone, PT rec acute rehab
Will stop aspirin/Plavix/subcu Lovenox
DVT ppx - OOBA, SCDs
Code status - Full Code
Updated at bedside
Total time spent to see the patient on the floor, examine the patient, review data and lab results, discuss treatment plan with patient, nursing staff around 39 minutes.
Physical Exam
General: No acute distress
HEENT: Normocephalic, Atraumatic, EOMI, MMM
Respiratory: Clear to Auscultation bilaterally
Cardiac: Normal S1/S2, Regular Rate and Rhythm
GI: Soft, Nontender, Nondistended, Normal Bowel Sounds
Extremities: No Clubbing, Cyanosis, or Edema
Neuro: Nonfocal/Grossly Intact
Psych: Calm, Cooperative
Derm: No Visible lesions
Anticipated Discharge: Within 24 hours
Subjective/Interval History
-
Date of Service: March 25, 2025
Patient continues to have ataxia and leans to the right while working with PT. She denies dysarthria, dysphagia, focal weakness. No chest pain, no shortness of breath. No fever, no vomiting.
Objective Data
-
Labs:
Laboratory Results
03/25/25
06:34
WBC 5.7
Hgb 13.6
Hct 42.3
Plt Count 221
Sodium 141
Potassium 4.6
Chloride 111 H
Carbon Dioxide 27
BUN 10
Creatinine 0.6
Glucose 92
Calcium 9.3
Vital Signs:
Vital Signs
Temp Pulse Resp BP Pulse Ox
98.8 F 71 16 113/79 100
03/25/25 07:37 03/25/25 07:37 03/25/25 07:37 03/25/25 07:37 03/25/25 07:37
I&O
03/24/25 03/25/25 03/26/25
06:59 06:59 06:59
Intake Total 480 / 480
Balance 480 / 480
[2025-03-25 09:57] LABS: C-Reactive Protein 26.10 mg/L (0.0-10.00)
[2025-03-25 10:16] LABS: Vitamin D, 25-OH*** 73.8 ng/mL (30-80)
[2025-03-25 10:29] LABS: TSH 2.50 uIU/ml (0.47-4.68)
[2025-03-25 10:33] LABS: Ferritin 47.7 ng/ml (6.24-137)
[2025-03-25 10:46] LABS: Glycohemoglobin (HgbA1c) 5.2 % (4.0-5.6)
[2025-03-25 11:05] LABS: Folate > 20.0 ng/ml (2.76-20); Vitamin B12 620 pg/ml (239-931)
[2025-03-25 11:29] VITALS: BP 110/80
[2025-03-25] MEDS: ATIVAN 1 MG PO (12:40)
[2025-03-25 15:17] VITALS: BP 111/76
--- NOTE | 2025-03-25 16:05 | CM ---
Alert awake oriented patient who lives with Mahamed and 4 mon old and 2 yo old children. They live in a 1 story home with 1 step to enter.She is independent in driving and all ADLs.Observation letter given explained signed on chart.Offered VN pt
declined need.
NO Adaptive devices.
NO VN /SNF hx
Pharmacy [facility] [address]
PCP DR Newton
PLANs Home no needs
--- NOTE | 2025-03-25 16:08 | W.PN.UPDATE ---
Update Note
Progress Note Update
MRI of brain with and without contrast was unremarkable.
Best diagnosis at this time would be bilateral vestibulopathy's with mild imbalance leading to falling to the right. Alternatively, vestibular neuritis without all the classic symptoms would be the next best possibility.
Would recommend initiation of prednisone 60 mg daily with rapid taper as well as physical therapy.
Will follow as needed.
[2025-03-25] MEDS: DELTASONE 60 MG PO (16:26)
--- NOTE | 2025-03-25 16:31 | W.DCSUMMARY ---
Discharge Summary
Discharge Data
Date of Admission: 03/24/25
Date of Discharge: 03/25/25
-
Pending Results: No
Hospital Course
Discharge diagnosis:
Ataxia with leaning to the right
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
Consults: Neurology
Brain MRI:
No hyper intense restricted diffusion to indicate acute infarct.
No significant abnormal parenchymal signal intensity is identified.
There is no abnormal parenchymal or meningeal enhancement.
No hydrocephalus.
There is no mass effect, midline shift, or extra axial collection.
No significant atrophy.
Normal flow-voids in the vascular structures at the skull base. Incidental note is made of a type II right anterior inferior cerebellar artery vascular loop extending approximately 50% into the internal auditory canal.
The paranasal sinuses are clear.
The mastoid air cells are clear.
Hospital course:
35-year-old female with no known significant past medical history, 4 months ago was admitted for acute onset of ataxia with leaning to the right. Patient was seen in conjunction with neurology. Brain MRI was negative. Neurology
suspects bilateral vestibulopathy's, with mild imbalance leading to falling to the right. Neurology recommends steroids. She was treated with prednisone 60 mg p.o. daily x 1, and will be discharged on prednisone 50 mg p.o. daily for 5 more days,
no taper needed. She has been provided a prescription for outpatient PT. She has been instructed to follow-up with her PCP in 1 week, neurology in 2-3 weeks, and ENT as needed.
Disposition: Home self-care
Discharge planning: Required 39 minutes
Discharge Plan
-
Patient Disposition: Home (Routine Discharge)
Discharge Diagnosis/Procedures: New onset acute ataxia
Condition: Good
Diet: Regular
Activity: As tolerated
Driving Restrictions: As prior to admission
Other Services: PT
Activity Restrictions/Additional Instructions:
Your brain MRI was normal. Neurology suspects vestibulopathy, left greater than right.
Please take your steroids as directed, follow-up with your PCP in 1 week, neurology in 2 weeks, and ENT as needed.
Referrals:
Adriel Gavin MD [Active, Neurology] - in two weeks
Eduar Newton DO [Family Provider, [facility]] - in one week
Brant Duque MD [Active, Otology] - in two to three weeks
Prescriptions:
New
prednisone 50 mg tablet
50 mg PO DAILY 5 Days Qty: 5 0RF
Continued
cholecalciferol (vitamin D3) [Vitamin D3] 25 mcg (1,000 unit) Tablet
25 mcg PO DAILY
Discharge Orders:
Discharge Patient (As Directed); Ordered 03/25/25
Ordered By: Jean Estevez
Discharge Date and Time
Discharge Date/Time: 03/25/25 19:27
Print Language: BOLIVIAN
--- NOTE | 2025-03-25 17:08 | W.PN.UPDATE ---
Update Note
Progress Note Update
Patient requesting discharge today.
Her discharge has been completed, and she can go if she is ambulating safely after receiving the prednisone.
Plan to discharge on high dose prednisone for total of 6 days, outpatient PT prescription provided, follow-up with PCP and neurology in the office.
[2025-03-25 18:59] VITALS: BP 116/79
--- NOTE | 2025-03-25 19:08 | PTCARENOTE ---
Discharge order written. Patient able to ambulate safely without walker afrer Prednisone administration. Pt ambulated in hallways with stand by assist. Able to verbalize symptoms that would require return to emergency room. Questions asked. Staff
escorted patient to husbands car by wheelchair.
[2025-03-27 03:38] LABS: ANA, IgG Reflex to HEp-2 None Detected (None Detected)
[2025-03-29 04:28] LABS: Lyme Disease DNA by PCR Not Detected; Lyme Source Serum
== END 2025-03-25 19:27 | disposition home or self-care (01) ==
LOC: 4 EAST ACU 20:39
PROVIDERS: ADMITTING PHYSICIAN Internal Medicine; ATTENDING PHYSICIAN Family Medicine; CONSULT PHYSICIAN Psychiatry & Neurology Neurology; EMERGENCY PHYSICIAN Student in an Organized Health Care Education/Training Program; FAMILY PHYSICIAN Family Medicine
DX: R27.0 Ataxia, unspecified (principal); J45.909 Unspecified asthma, uncomplicated; W19.XXXA Unspecified fall, initial encounter; Z79.02 Long term (current) use of antithrombotics/antiplatelets; Z79.52 Long term (current) use of systemic steroids; Z79.82 Long term (current) use of aspirin; Z79.899 Other long term (current) drug therapy
CPT/HCPCS: 70496; 70553; 80048; 80053; 80061; 82306; 82607; 82728; 82746; 83036; 83735; 84443; 84703; 85025; 85027; 85652; 86038; 86140; 87476; 92523; 93005; 96360; 97163; 97166; 99285; A9575; G0378; Q9967